=== PATIENT | female | born 1955 | race Caucasian/White ===

== ENCOUNTER 2016-11-17 13:00 | Outpatient (CLI) | payer MEDICAID ==
[2016-11-17 13:45] VITALS: BP 117/63
== END 2016-11-17 13:40 | disposition home or self-care (01) ==
LOC: COP 13:00
DX: M81.0 Age-related osteoporosis without current pathological fracture (principal)

== ENCOUNTER → 2017-01-26 | Outpatient (CLI) | payer MEDICAID ==
[~2017-01-26] MED LIST: ASPIR 8181 MG PO; CALCIUM PO; CIPRO 500MG TA500 MG PO; DILAUDID4 MG PO; DULCOLAX10 M1 RC; EVISTA60 MG PO; LEADER ALL DAY PO; LEVOTHYROXIN0.075 M1 PO; LEVOTHYROXINE0.05 MG NG; MAXZIDE 25 MG-31 TA1 PO; PANTOPRAZOLE40 M1 PO; PHENERGAN 25MG.25 M1 PO; RESTASIS0.05% OP; RISAQUAD1 CA1 PO; SIMVASTATIN20 MG PO; ZOFRAN ODT4 MG PO
[2017-01-26 11:47] LABS: BUN 12 mg/dL (7-18)
--- NOTE | 2017-01-26 13:09 | RADIOLOGY REPORT PS360 ---
History and Indications: Hypertension, shortness of breath, fatigue and abnormal EKG. Procedure: Patient received a 0.4 mg of Lexiscan, resting heart rate was 66 bpm, resting blood pressure 137/63, with Lexiscan maximum heart rate achieved was 94 bpm is less than 85% of the maximum predicted heart rate and a blood pressure was 139/71. With Lexiscan patient complained of shortness of breath Electrocardiogram: Resting electrocardiogram showed sinus rhythm, with Lexiscan there is less than 1.[address] segment depression noted from the baseline EKG, the EKG portion of the Lexiscan Myoview is nondiagnostic. Cardiac stress and resting SPECT images: Cardiac stress and the suspect images were obtained using technetium 99 Myoview 10.4 mCi at rest and 31.9 mCi at stress, gated SPECT further analysis of segmental wall motion and calculation of the ejection fraction also done. Cardiac stress and rest SPECT images show a fixed defect in the anterior wall with normal contractility gated SPECT is likely secondary to soft tissue attenuation from the breast, no reversible ischemia seen. Computer derived ejection fraction is over 65% with no obvious regional wall motion abnormality, right ventricle is normal size and contractility. Conclusion: 1. The EKG portion of the Lexiscan Myoview is nondiagnostic. 2. No obvious scintigraphic evidence of reversible ischemia seen. Computer derived ejection fraction is over 65% with no obvious regional wall motion abnormality, right ventricle is normal size and contractility.
--- NOTE | 2017-01-26 13:15 | RADIOLOGY REPORT PS360 ---
PROCEDURE: 2-D M-mode and color Doppler study INDICATIONS FOR THE TEST: Chest pain X COPD Heart Murmur Tobacco Smoking Palpitations Fatigue Syncope EdemaX HypertensionXDiabetes Mellitus Rheumatic Fever SOBXDOEXObesity Hyperlipidemia Family History HD Additional History PATIENT INFORMATION HEIGHT: 64 WEIGHT:160 GENDER: Female B/P:137/64 2-D/M-MODE INTERPRETATION: 2-D MEASUREMENTS OBSERVED VALUES IN CMS Right Ventricular Dimension (RVDd) 2.0 Interventricular Septum (Thickness)(IVsd) .9 Left Ventricular Internal Dimensions(LVIDd) 5.0 Left Ventricular Posterior Wall (Thickness)(LVPWd) .6 Aortic Root 2.5 Aortic Cusp Separation 1.8 Left Atrial Dimensions (LAD) 4.3 2D 1. Left atrium is mildly enlarged, left ventricle is normal size, there is no concentric left ventricular hypertrophy, visually estimated ejection fraction 55% with no obvious regional wall motion abnormality. 2. The right atrium and right ventricle are normal size and contractility. 3. The aortic valve, mitral and tricuspid valve are grossly normal. 4. The pulmonic valve is poorly visualized. 5. No significant pericardial effusion noted. DOPPLER INTERROGATION: Doppler interrogation of the aortic, mitral and tricuspid valvular presence of mild mitral and tricuspid regurgitation, tricuspid regurgitant jet velocity is insufficient for calculation of the right ventricular systolic pressure, diastolic parameters are inconclusive. CONCLUSION: 1. Mildly enlarged left atrium, normal left ventricular size, visually estimated ejection fraction 55% with no obvious regional wall motion abnormality, diastolic parameters are inconclusive. 2. Mild mitral and tricuspid regurgitation. 3. No significant pericardial effusion noted.
[2017-01-26 15:49] LABS: GFR (ESTIMATED) 57 ML/MIN (59-)
== END ==
LOC: RAD 01-25 07:30 → RT 01-25 11:00 → RAD 06:30 → LAB 07:05 → RAD 07:05
PROVIDERS: Internal Medicine
DX: R07.9 Chest pain, unspecified (principal); R06.00 Dyspnea, unspecified; R94.31 Abnormal electrocardiogram [ECG] [EKG]; I10 Essential (primary) hypertension
CPT/HCPCS: A9502; J2785